=== PATIENT | male | born 1990 | race Caucasian/White ===

== ENCOUNTER 2019-12-10 12:40 | Emergency (ER) | payer OTHER ==
--- NOTE | 2019-12-10 12:51 | EDM.PDOC ---
ED HPI GENERAL MEDICAL PROBLEM - General Chief Complaint: Fever Stated Complaint: FEVER 100.1 NOT FEELING WELL Time Seen by Provider: 12/10/19 12:50 Source of Information: Reports: Patient History Limitations: Reports: No Limitations - History of Present Illness INITIAL COMMENTS - FREE TEXT/NARRATIVE: This 29 year old male is admitted to the ED with a chief complaint of fever, cough and SOB since yesterday. He states that he returned from [place], [place] about one to two weeks ago. He also complains of weakness of all his muscles with aching of all of his muscles. He complains of mild nausea and vomiting this morning. He denies any other symptoms at this time. - Related Data Allergies Allergy/AdvReac Type Severity Reaction Status Date / Time No Known Allergies Allergy Verified 12/10/19 12:54 Home Meds: Home Meds Azithromycin [Zithromax] 500 mg PO DAILY 7 Days #7 tab 12/10/19 [Rx] Benzonatate 200 mg PO BID PRN 5 Days #10 capsule 12/10/19 [Rx] ED ROS GENERAL - Review of Systems Review Of Systems: Comprehensive ROS is negative, except as noted in HPI. ED EXAM, GENERAL - Physical Exam Exam: See Below Exam Limited By: No Limitations General Appearance: Alert, WD/WN, No Apparent Distress Eye Exam: Bilateral Eye: EOMI, Normal Inspection, PERRL Ears: Normal External Exam, Normal Canal, Hearing Grossly Normal, Normal TMs Ear Exam: Bilateral Ear: Auricle Normal, Canal Normal, TM normal Nose: Normal Inspection, Normal Mucosa, No Blood Throat/Mouth: Normal Inspection, Normal Oropharynx Head: Atraumatic, Normocephalic Neck: Normal Inspection, Supple, Non-Tender, Full Range of Motion Respiratory/Chest: No Respiratory Distress, Lungs Clear, Normal Breath Sounds Cardiovascular: Normal Peripheral Pulses, Regular Rate, Rhythm, No Edema, No Murmur GI/Abdominal: Normal Bowel Sounds, Soft, Non-Tender, No Organomegaly, No Abnormal Bruit (Male) Exam: Deferred Rectal (Males) Exam: Black Stool Back Exam: Normal Inspection, Full Range of Motion Extremities: Normal Inspection, Normal Range of Motion, Normal Capillary Refill Neurological: Alert, Oriented (times 4), CN II-XII Intact, Normal Cognition, Normal Gait, Normal Reflexes, No Motor/Sensory Deficits Psychiatric: Normal Affect, Normal Mood Skin Exam: Warm, Dry, Intact, Normal Color, No Rash Lymphatic: No Adenopathy Course - Vital Signs Text/Narrative:: I reviewed all of the patients diagnostic test including his negative COVID. I told him that his WBC was 17,000 and I could not account for an infection but that I would cover him with Zithromax for the next 6 days. He agrees with the discharge plan. Last Recorded V/S: Last Vital Signs Temp 100.2 F 12/10/19 12:56 Pulse 109 H 12/10/19 12:56 Resp 17 12/10/19 12:56 BP 130/72 12/10/19 12:56 Pulse Ox 98 12/10/19 12:56 - Orders/Labs/Meds Labs: Laboratory Tests 12/10/19 12/10/19 Range/Units 13:14 14:41 WBC 17.10 H (4.0-11.0) K/uL RBC 5.56 (4.50-5.90) M/uL Hgb 15.2 (13.0-17.0) g/dL Hct 45.2 (38.0-50.0) % MCV 81.3 (80.0-98.0) fL MCH 27.3 (27.0-32.0) pg MCHC 33.6 (31.0-37.0) g/dL RDW Std Deviation 40.8 (28.0-62.0) fl RDW Coeff of Carly 14 (11.0-15.0) % Plt Count 199 (150-400) K/uL MPV 11.00 (7.40-12.00) fL Neut % (Auto) 75.2 (48.0-80.0) % Lymph % (Auto) 11.8 L (16.0-40.0) % [place] % (Auto) 11.7 (0.0-15.0) % Eos % (Auto) 1.1 (0.0-7.0) % Baso % (Auto) 0.2 (0.0-1.5) % Neut # (Auto) 12.9 H (1.4-5.7) K/uL Lymph # (Auto) 2.0 (0.6-2.4) K/uL [place] # (Auto) 2.0 H (0.0-0.8) K/uL Eos # (Auto) 0.2 (0.0-0.7) K/uL Baso # (Auto) 0.0 (0.0-0.1) K/uL Nucleated RBC % 0.0 /100WBC Nucleated RBCs # 0 K/uL SARS-CoV-2 RNA (RT-PCR) NEGATIVE (NEGATIVE) Meds: Medications Discontinued Medications Generic Name Dose Route Start Last Admin Trade Name Freq PRN Reason Stop Dose Admin Benzonatate 200 mg 12/10/19 13:02 12/10/19 14:20 Tessalon Perles PO 12/10/19 13:03 200 mg ONETIME ONE Administration Departure - Departure Time of Disposition: 14:59 Disposition: Home, Self-Care 01 Condition: Good Clinical Impression: Acute viral syndrome Leukocytosis Qualifiers: Leukocytosis type: unspecified Qualified Code(s): D72.829 - Elevated white blood cell count, unspecified - Discharge Information *PRESCRIPTION DRUG MONITORING PROGRAM REVIEWED*: Yes *COPY OF PRESCRIPTION DRUG MONITORING REPORT IN PATIENT DOROTEO: Yes Instructions: Viral Respiratory Infection, [id number]-Hj-[id number], Fever, Adult, Easy-to- Read Referrals: PCP,None [Primary Care Provider] - Forms: ED Department Discharge Additional Instructions: Take all medications as directed. Follow up with your PCP in the next two to four days. Drink plenty of clear liquids for the next 24-48 hours. Rest for the next 24 hours. Return to the ED if your condition gets worse or should you have any questions or concerns. The following information is given to patients seen in the emergency department who are being discharged to home. This information is to outline your options for follow-up care. We provide all patients seen in our emergency department with a follow-up referral. The need for follow-up, as well as the timing and circumstances, are variable depending upon the specifics of your emergency department visit. If you don't have a primary care physician on staff, we will provide you with a referral. We always advise you to contact your personal physician following an emergency department visit to inform them of the circumstance of the visit and for follow-up with them and/or the need for any referrals to a consulting specialist. The emergency department will also refer you to a specialist when appropriate. This referral assures that you have the opportunity for follow-up care with a specialist. All of these measure are taken in an effort to provide you with optimal care, which includes your follow-up. Under all circumstances we always encourage you to contact your private physician who remains a resource for coordinating your care. When calling for follow-up care, please make the office aware that this follow-up is from your recent emergency room visit. If for any reason you are refused follow-up, please contact the [facility] Emergency Department at and asked to speak to the emergency department charge nurse Sepsis Event Note - Focused Exam Vital Signs: Vital Signs Temp Pulse Resp BP Pulse Ox 12/10/19 12:56 100.2 F 109 H 17 130/72 98 Date Exam was Performed: 12/10/19 Time Exam was Performed: 14:57
[2019-12-10] MEDS ORDERED: Benzonatate 100 MG Cap PO ONE (13:02)
--- NOTE | 2019-12-10 13:52 | CR ---
Chest: 2 views of the chest were obtained. Comparison: No prior chest imaging is available. Heart size and mediastinum are normal. Small oblong nodular density is seen overlying the posterior left 6th rib within the upper chest. Uncertain if this represents a nodule within the lung parenchyma or represents a bone island. Lungs otherwise are clear. Bony structures are otherwise unremarkable. Impression: 1. Nodule as noted above. Given the patient's age this is most likely incidental. 2. Nothing acute is otherwise seen on 2 view chest x-ray. Diagnostic code #2 This report was dictated in MDT
== END 2019-12-10 15:17 | disposition home or self-care (01) ==
LOC: MW.ED 12:40
DX: B34.9 Viral infection, unspecified (principal); D72.829 Elevated white blood cell count, unspecified; Z20.828 Contact with and (suspected) exposure to other viral communicable diseases
CPT/HCPCS: 36415; 71046; 85025; 87635; 99283; A9270; 99282; U0002

== ENCOUNTER 2019-12-12 08:12 | Emergency (ER) | payer OTHER ==
--- NOTE | 2019-12-12 08:46 | EDM.PDOC ---
ED HPI GENERAL MEDICAL PROBLEM - General Chief Complaint: ENT Problem Stated Complaint: PT THINKS HE MAY HAVE STREP Time Seen by Provider: 12/12/19 08:41 Source of Information: Reports: Patient History Limitations: Reports: No Limitations - History of Present Illness INITIAL COMMENTS - FREE TEXT/NARRATIVE: Is a 29-year-old male who is here with worsening sore throat. Patient has noted white spots on the back of his tonsils. He was seen here 2 days ago at that time was tested for COVID which was negative and was started on azithromycin. Was also given some cough medicine. He denies any fever or chills. He denies any nausea vomiting diarrhea. He denies any trouble swallowing or breathing. Is taken nothing else for his current symptoms. He is here because he is worried they might have strep pharyngitis. Have informed them we do not need to test for it since he is already being covered with azithromycin. Duration: Day(s): (four) Location: Reports: Other (Throat.) Quality: Reports: Ache Improves with: Reports: None Worsens with: Reports: None throat Pain Score (Numeric/FACES): 8 - Related Data Allergies Allergy/AdvReac Type Severity Reaction Status Date / Time No Known Allergies Allergy Verified 12/12/19 08:20 Home Meds: Home Meds Azithromycin [Zithromax] 500 mg PO DAILY 12/12/19 [History] Benzonatate 200 mg PO BID PRN 12/12/19 [History] Lisdexamfetamine Dimesylate [Vyvanse] 20 mg PO DAILY 12/12/19 [History] predniSONE [Prednisone] 20 mg PO DAILY #5 tablet 12/12/19 [Rx] Past Medical History - Past Health History Medical/Surgical History: Denies Medical/Surgical History HEENT History: Reports: None Cardiovascular History: Reports: None Respiratory History: Reports: None Gastrointestinal History: Reports: None Genitourinary History: Reports: None Musculoskeletal History: Reports: None Neurological History: Reports: None Psychiatric History: Reports: None Endocrine/Metabolic History: Reports: None Hematologic History: Reports: None Immunologic History: Reports: None Oncologic (Cancer) History: Reports: None Dermatologic History: Reports: None - Infectious Disease History Infectious Disease History: Reports: None - Past Surgical History Head Surgeries/Procedures: Reports: None HEENT Surgical History: Reports: None Cardiovascular Surgical History: Reports: None Respiratory Surgical History: Reports: None GI Surgical History: Reports: None Male Surgical History: Reports: None Endocrine Surgical History: Reports: None Neurological Surgical History: Reports: None Musculoskeletal Surgical History: Reports: None Oncologic Surgical History: Reports: None Dermatological Surgical History: Reports: None Social & Family History - Family History Family Medical History: Noncontributory - Tobacco Use Smoking Status *Q: Current Every Day Smoker Years of Tobacco use: 5 Packs/Tins Daily: 1.5 - Caffeine Use Caffeine Use: Reports: None - Recreational Drug Use Recreational Drug Use: No ED ROS ENT - Review of Systems Review Of Systems: Comprehensive ROS is negative, except as noted in HPI. ED EXAM, ENT - Physical Exam Exam: See Below Exam Limited By: No Limitations General Appearance: Alert Mouth/Throat: Pharyngeal Erythema, Other (Enlarged tonsils bilaterally with exudates.) Neck: Normal Inspection. No: Lymphadenopathy (L), Lymphadenopathy (R) Respiratory/Chest: No Respiratory Distress Neurological: Alert, Oriented Psychiatric: Normal Affect Skin: Warm, Dry Lymphatic: No Adenopathy Course - Vital Signs Text/Narrative:: I am starting patient on prednisone. Advising him to use children's ibuprofen and his adult dose to coat his throat make him feel better. He may try salt water gargles. Last Recorded V/S: Last Vital Signs Temp 35.9 C L 12/12/19 08:21 Pulse 75 12/12/19 08:21 Resp 18 12/12/19 08:21 BP 120/81 12/12/19 08:21 Pulse Ox 96 12/12/19 08:21 Departure - Departure Time of Disposition: 08:52 Disposition: Home, Self-Care 01 Condition: Good Clinical Impression: Exudative pharyngitis - Discharge Information Instructions: Pharyngitis Referrals: PCP,None [Primary Care Provider] - Additional Instructions: The following information is given to patients seen in the emergency department who are being discharged to home. This information is to outline your options for follow-up care. We provide all patients seen in our emergency department with a follow-up referral. The need for follow-up, as well as the timing and circumstances, are variable depending upon the specifics of your emergency department visit. If you don't have a primary care physician on staff, we will provide you with a referral. We always advise you to contact your personal physician following an emergency department visit to inform them of the circumstance of the visit and for follow-up with them and/or the need for any referrals to a consulting specialist. The emergency department will also refer you to a specialist when appropriate. This referral assures that you have the opportunity for follow-up care with a specialist. All of these measure are taken in an effort to provide you with optimal care, which includes your follow-up. Under all circumstances we always encourage you to contact your private physician who remains a resource for coordinating your care. When calling for follow-up care, please make the office aware that this follow-up is from your recent emergency room visit. If for any reason you are refused follow-up, please contact the [facility] Emergency Department at and asked to speak to the emergency department charge nurse. Care Plan Goals: Liquid ibuprofen every 6 hours as needed. Salt water gargles. Mazzone as prescribed. Return to ER if worse. Follow-up with PCP if not improving. Sepsis Event Note - Evaluation Sepsis Screening Result: No Definite Risk - Focused Exam Vital Signs: Vital Signs Temp Pulse Resp BP Pulse Ox 12/12/19 08:21 35.9 C L 75 18 120/81 96 Date Exam was Performed: 12/12/19 Time Exam was Performed: 08:41
== END 2019-12-12 08:58 | disposition home or self-care (01) ==
LOC: MW.ED 08:12
DX: J02.9 Acute pharyngitis, unspecified (principal); F17.210 Nicotine dependence, cigarettes, uncomplicated
CPT/HCPCS: 99282

== ENCOUNTER 2021-02-25 17:39 | Emergency (ER) | payer OTHER ==
[2021-02-25 20:49] LABS: CORONAVIRUS COVID-19 NAA NEGATIVE (NEGATIVE); INFLUENZA A NAA NEGATIVE (NEGATIVE); INFLUENZA B NAA NEGATIVE (NEGATIVE)
--- NOTE | 2021-02-25 20:53 | EDM.PDOC ---
ED HPI GENERAL MEDICAL PROBLEM - General Chief Complaint: Respiratory Problem Stated Complaint: FEELING ILL Time Seen by Provider: 02/25/21 19:43 Source of Information: Reports: Patient History Limitations: Reports: No Limitations - History of Present Illness INITIAL COMMENTS - FREE TEXT/NARRATIVE: HISTORY AND PHYSICAL: History of present illness: Patient is a 30-year-old male who presents emergency room today with concern of cough x4 days. Patient states that yesterday he did have a fever and chills and states he has had some nausea and one episode of vomiting yesterday but states he has not had that today. Patient states he also had diarrhea a few episodes yesterday but not today. Patient states today he continues to have a "spasmatic cough "and states that at times he has coughed so hard this is what made him vomit yesterday. Patient states that he did have COVID-19 infection 9 months ago and states that he has not been vaccinated but states that when he had Covid he thought this felt different than how he feels today. Patient states he has not taken anything for his symptoms. Patient denies shortness of breath, chest pain. Denies headache, neck stiff n ess, change in vision, syncope, or near syncope. Denies abdominal pain, constipation, or dysuria. Has not noted any blood in urine or stool. Patient has been eating and drinking appropriately. Review of systems: As per history of present illness and below otherwise all systems reviewed and negative. Past medical history: As per history of present illness and as reviewed below otherwise noncont ributory. Surgical history: As per history of present illness and as reviewed below otherwise noncontributory. Social history: See social history for further information Family history: As per history of present illness and as reviewed below otherwise noncontributory. Physical exam: General: Patient is alert, oriented, and in no acute distress. Patient sitting comfortably on exam table. Vitals stable and reviewed by me. HEENT: Atraumatic, normocephalic, pupils equal and reactive bilaterally, negative for conjunctival pallor or scleral icterus, mucous membranes moist, TMs normal bilaterally, throat clear, neck supple, nontender, trachea midline. No drooling or trismus noted. No meningeal signs. No hot potato voice noted. Lungs: Clear to auscultation, breath sounds equal bilaterally, chest nontender. Spasmatic cough on exam. Otherwise, no wheezing or stridor. Patient is breathing comfortably. Heart: S1S2, regular rate and rhythm without overt murmur Abdomen: Soft, nondistended, nontender. Negative for masses or hepatosplenomegaly. Negative for costovertebral tenderness. Pelvis: Stable nontender. Genitourinary: Deferred. Rectal: Deferred. Skin: Intact, warm, dry. No lesions or rashes noted. Extremities: Atraumatic, negative for cords or calf pain. Neurovascular unremarkable. Neuro: Awake, alert, oriented. Cranial nerves II through XII unremarkable. Cerebellum unremarkable. Motor and sensory unremarkable throughout. Exam nonfocal. Notes: Patient is an otherwise healthy 30-year-old male who presents emergency room today with concern of cough/chest pain x4 days with at times coughing so hard has induced emesis. Upon arrival to the ED, patient is vitally stable and well- appearing on exam. Triage vitals does note that patient is tachycardic, however, this has resolved by my exam and approximately 95 bpm on my exam. Patient does have a spasmatic cough on exam that comes and goes, but otherwise is well-appearing on exam with no abdominal pain or tenderness. Will obtain cardiac evaluation and chest x-ray and reassess patient. Voices understanding and is agreeable to plan of care. Denies any further questions or concerns at this time. CBC shows mild decrease in neutrophil percent at 45 with 2% bands and elevation in lymphocyte percent 41%. Otherwise, mild derangements of CBC unremarkable. CMP shows a mild hyponatremia at 133. AST and ALT are elevated at 107 and 316 respectively. Alk phos is also elevated at 184. Total bili is within normal limits at 0.7. Troponin negative. Urinalysis shows 30 protein, small bilirubin with 0-2 red blood cells, 1-2 white blood cells. Acetaminophen level negative. Influenza and Covid negative. Pending Legionella and pertussis Chest x-ray shows no acute cardiopulmonary process. Upon reevaluation of patient, he has improvement of his cough with nebulized lidocaine today. Will treat patient with azithromycin for possible atypical pneumonia. Strict return precautions thoroughly discussed with patient. Discussed importance for follow-up with a primary care provider. Diagnostics: EKG, CBC, CMP, chest x-ray, Covid/influenza, trop, Legionella, Pertussis Therapeutics: Nebulized lidocaine Prescription: Robitussin Azithromycin Zofran Impression: Cough Plan: 1. Take medication as prescribed. You can also alternate ibuprofen and Tylenol as directed for pain and discomfort. Caution when taking additional cough syrups or brty-ryy-yaduwoq cold medications as these commonly contain acetaminophen (Tylenol). 2. Follow-up with a primary care provider as discussed. Return to the ED as needed and as discussed. Definitive disposition and diagnosis as appropriate pending reevaluation and review of above. Upper Chest Pain Score (Numeric/FACES): 3 - Related Data Allergies Allergy/AdvReac Type Severity Reaction Status Date / Time No Known Allergies Allergy Verified 12/12/19 08:20 Home Meds: Home Meds . [No Known Home Meds] 02/25/21 [History] Past Medical History - Past Health History Medical/Surgical History: Denies Medical/Surgical History HEENT History: Reports: None Cardiovascular History: Reports: None Respiratory History: Reports: None Gastrointestinal History: Reports: None Genitourinary History: Reports: None Musculoskeletal History: Reports: None Neurological History: Reports: None Psychiatric History: Reports: None Endocrine/Metabolic History: Reports: None Hematologic History: Reports: None Immunologic History: Reports: None Oncologic (Cancer) History: Reports: None Dermatologic History: Reports: None - Infectious Disease History Infectious Disease History: Reports: None - Past Surgical History Head Surgeries/Procedures: Reports: None HEENT Surgical History: Reports: None Cardiovascular Surgical History: Reports: None Respiratory Surgical History: Reports: None GI Surgical History: Reports: None Male Surgical History: Reports: None Endocrine Surgical History: Reports: None Neurological Surgical History: Reports: None Musculoskeletal Surgical History: Reports: None Oncologic Surgical History: Reports: None Dermatological Surgical History: Reports: None Social & Family History - Family History Family Medical History: No Pertinent Family History - Caffeine Use Caffeine Use: Reports: None - Recreational Drug Use Recreational Drug Use: No ED ROS GENERAL - Review of Systems Review Of Systems: Comprehensive ROS is negative, except as noted in HPI. ED EXAM, GENERAL - Physical Exam Exam: See Below (see dictation) Course - Vital Signs Last Recorded V/S: Last Vital Signs Temp 98.6 F 02/25/21 19:39 Pulse 89 02/25/21 21:51 Resp 18 02/25/21 21:51 BP 121/76 02/25/21 21:51 Pulse Ox 99 08/02/21 21:51 - Orders/Labs/Meds Orders: Active Orders 24 hr Category Date Time Status Cardiac Monitoring [RC] . DIRECTED Care 02/25/21 20:03 Active EKG Documentation Completion [RC] STAT Care 02/25/21 20:04 Active B PERTUSSIS IGG/M/A AB [REF] Stat Lab 02/25/21 20:20 Received BORD PERTUSS NUCLEIC ACID AMP [MREF] Stat Lab 02/25/21 20:05 Received LEGIONELLA ANTIGEN [MREF] Stat Lab 02/25/21 21:45 Received Labs: Laboratory Tests 02/25/21 02/25/21 02/25/21 Range/Units 20:00 20:20 20:20 WBC 9.20 (4.0-11.0) K/uL RBC 5.79 (4.50-5.90) M/uL Hgb 16.1 (13.0-17.0) g/dL Hct 45.6 (38.0-50.0) % MCV 78.8 L (80.0-98.0) fL MCH 27.8 (27.0-32.0) pg MCHC 35.3 (31.0-37.0) g/dL RDW Std Deviation 37.8 (28.0-62.0) fl RDW Coeff of Carly 13 (11.0-15.0) % Plt Count 201 (150-400) K/uL MPV 10.40 (7.40-12.00) fL Add Manual Diff YES Neutrophils % (Manual) 45 L (48.0-80.0) % Band Neutrophils % 2 % Lymphocytes % (Manual) 41 H (16.0-40.0) % Monocytes % (Manual) 9 (0.0-15.0) % Eosinophils % (Manual) 3 (0.0-7.0) % Nucleated RBC % 0.0 /100WBC Absolute Seg Neuts 4.1 (1.4-5.7) Band Neutrophils # 0.2 Lymphocytes # (Manual) 3.8 H (0.6-2.4) Monocytes # (Manual) 0.8 (0.0-0.8) Eosinophils # (Manual) 0.3 (0.0-0.7) Nucleated RBCs # 0 K/uL Sodium 133 L (136-148) mmol/L Potassium 3.9 (3.5-5.1) mmol/L Chloride 101 (98-107) mmol/L Carbon Dioxide 22.3 (21.0-32.0) mmol/L BUN 14 (7.0-18.0) mg/dL Creatinine 1.0 (0.8-1.3) mg/dL Est Cr Clr Drug Dosing 118.56 mL/min Estimated GFR (MDRD) > 60.0 ml/min Glucose 106 (74-106) mg/dL Calcium 8.5 (8.5-10.1) mg/dL Total Bilirubin 0.7 (0.2-1.0) mg/dL AST 107 H (15-37) IU/L ALT 316 H (14-63) IU/L Alkaline Phosphatase 184 H (46-116) U/L Troponin I < 0.050 (0.000-0.056) ng/mL Total Protein 8.0 (6.4-8.2) g/dL Albumin 3.8 (3.4-5.0) g/dL Globulin 4.2 H (2.6-4.0) g/dL Albumin/Globulin Ratio 0.9 (0.9-1.6) Urine Color Urine Appearance Urine pH (5.0-8.0) Ur Specific Minier (1.001-1.035) Urine Protein (NEGATIVE) mg/dL Urine Glucose (UA) (NEGATIVE) mg/dL Urine Ketones (NEGATIVE) mg/dL Urine Occult Blood (NEGATIVE) Urine Nitrite (NEGATIVE) Urine Bilirubin (NEGATIVE) Urine Ictotest Urine Urobilinogen (<2.0) EU/dL Ur Leukocyte Esterase (NEGATIVE) Urine RBC (0-2/HPF) Urine WBC (0-5/HPF) Ur Epithelial Cells (NONE-FEW) Urine Bacteria (NEGATIVE) Urine Mucus (NONE-MOD) Acetaminophen ug/mL Influenza Type A RNA NEGATIVE (NEGATIVE) Influenza Type B RNA NEGATIVE (NEGATIVE) SARS-CoV-2 RNA ([place]) NEGATIVE (NEGATIVE) 02/25/21 02/25/21 Range/Units 20:20 21:45 WBC (4.0-11.0) K/uL RBC (4.50-5.90) M/uL Hgb (13.0-17.0) g/dL Hct (38.0-50.0) % MCV (80.0-98.0) fL MCH (27.0-32.0) pg MCHC (31.0-37.0) g/dL RDW Std Deviation (28.0-62.0) fl RDW Coeff of Carly (11.0-15.0) % Plt Count (150-400) K/uL MPV (7.40-12.00) fL Add Manual Diff Neutrophils % (Manual) (48.0-80.0) % Band Neutrophils % % Lymphocytes % (Manual) (16.0-40.0) % Monocytes % (Manual) (0.0-15.0) % Eosinophils % (Manual) (0.0-7.0) % Nucleated RBC % /100WBC Absolute Seg Neuts (1.4-5.7) Band Neutrophils # Lymphocytes # (Manual) (0.6-2.4) Monocytes # (Manual) (0.0-0.8) Eosinophils # (Manual) (0.0-0.7) Nucleated RBCs # K/uL Sodium (136-148) mmol/L Potassium (3.5-5.1) mmol/L Chloride (98-107) mmol/L Carbon Dioxide (21.0-32.0) mmol/L BUN (7.0-18.0) mg/dL Creatinine (0.8-1.3) mg/dL Est Cr Clr Drug Dosing mL/min Estimated GFR (MDRD) ml/min Glucose (74-106) mg/dL Calcium (8.5-10.1) mg/dL Total Bilirubin (0.2-1.0) mg/dL AST (15-37) IU/L ALT (14-63) IU/L Alkaline Phosphatase (46-116) U/L Troponin I (0.000-0.056) ng/mL Total Protein (6.4-8.2) g/dL Albumin (3.4-5.0) g/dL Globulin (2.6-4.0) g/dL Albumin/Globulin Ratio (0.9-1.6) Urine Color YELLOW Urine Appearance CLEAR Urine pH 5.5 (5.0-8.0) Ur Specific Minier >= 1.030 (1.001-1.035) Urine Protein 30 H (NEGATIVE) mg/dL Urine Glucose (UA) NEGATIVE (NEGATIVE) mg/dL Urine Ketones NEGATIVE (NEGATIVE) mg/dL Urine Occult Blood NEGATIVE (NEGATIVE) Urine Nitrite NEGATIVE (NEGATIVE) Urine Bilirubin SMALL H (NEGATIVE) Urine Ictotest NEGATIVE Urine Urobilinogen 1.0 (<2.0) EU/dL Ur Leukocyte Esterase NEGATIVE (NEGATIVE) Urine RBC 0-2 (0-2/HPF) Urine WBC 1-2 (0-5/HPF) Ur Epithelial Cells FEW (NONE-FEW) Urine Bacteria FEW (NEGATIVE) Urine Mucus MODERATE (NONE-MOD) Acetaminophen <2.0 ug/mL Influenza Type A RNA (NEGATIVE) Influenza Type B RNA (NEGATIVE) SARS-CoV-2 RNA ([place]) (NEGATIVE) Meds: Medications Discontinued Medications Generic Name Dose Route Start Last Admin Trade Name Freq PRN Reason Stop Dose Admin Lidocaine HCl 5 ml 02/25/21 21:41 02/25/21 21:50 Lidocaine 1% 5 Ml Sdv INJECT 02/25/21 21:42 5 ml ONETIME ONE Administration Departure - Departure Time of Disposition: 21:59 Disposition: Home, Self-Care 01 Clinical Impression: Cough - Discharge Information Instructions: Cough, Adult Referrals: PCP,None [Primary Care Provider] - Forms: ED Department Discharge Additional Instructions: The following information is given to patients seen in the emergency department who are being discharged to home. This information is to outline your options for follow-up care. We provide all patients seen in our emergency department with a follow-up referral. The need for follow-up, as well as the timing and circumstances, are variable depending upon the specifics of your emergency department visit. If you don't have a primary care physician on staff, we will provide you with a referral. We always advise you to contact your personal physician following an emergency department visit to inform them of the circumstance of the visit and for follow-up with them and/or the need for any referrals to a consulting specialist. The emergency department will also refer you to a specialist when appropriate. This referral assures that you have the opportunity for follow-up care with a specialist. All of these measure are taken in an effort to provide you with optimal care, which includes your follow-up. Under all circumstances we always encourage you to contact your private physic nandini who remains a resource for coordinating your care. When calling for follow- up care, please make the office aware that this follow-up is from your recent emergency room visit. If for any reason you are refused follow-up, please contact the [facility] Emergency Department at and asked to speak to the emergency department charge nurse. [facility] [address] [place] [address] [facility] [address] [place] [id number] 1. Take medication as prescribed. You can also alternate ibuprofen and Tylenol as directed for pain and discomfort. Caution when taking additional cough syrups or uwkq-fom-tvxpyjf cold medications as these commonly contain acetaminophen (Tylenol). 2. Follow-up with a primary care provider as discussed. Return to the ED as needed and as discussed. Sepsis Event Note (ED) - Evaluation Sepsis Screening Result: No Definite Risk - Focused Exam Vital Signs: Vital Signs Temp Pulse Resp BP Pulse Ox 02/25/21 21:51 89 18 121/76 99 02/25/21 19:39 98.6 F 106 H 14 96 - My Orders Last 24 Hours: My Active Orders 02/25/21 20:03 Cardiac Monitoring [RC] . DIRECTED 02/25/21 20:04 EKG Documentation Completion [RC] STAT 02/25/21 20:05 BORD PERTUSS NUCLEIC ACID AMP [MREF] Stat 02/25/21 20:20 B PERTUSSIS IGG/M/A AB [REF] Stat 02/25/21 21:45 LEGIONELLA ANTIGEN [MREF] Stat - Assessment/Plan Last 24 Hours: My Active Orders 02/25/21 20:03 Cardiac Monitoring [RC] . DIRECTED 02/25/21 20:04 EKG Documentation Completion [RC] STAT 02/25/21 20:05 BORD PERTUSS NUCLEIC ACID AMP [MREF] Stat 02/25/21 20:20 B PERTUSSIS IGG/M/A AB [REF] Stat 02/25/21 21:45 LEGIONELLA ANTIGEN [MREF] Stat
[2021-02-25 21:03] LABS: BLOOD UREA NITROGEN,BUN 14 mg/dL (7.0-18.0); CARBON DIOXIDE,CO2 22.3 mmol/L (21.0-32.0); CHLORIDE,CL 101 mmol/L (98-107); GLUCOSE RANDOM 106 mg/dL (74-106); POTASSIUM,K 3.9 mmol/L (3.5-5.1); SODIUM,NA 133 mmol/L (136-148)
--- NOTE | 2021-02-25 22:44 | CR ---
INDICATION: cough and fever CHEST, PA AND LATERAL Upright PA and lateral radiographs of the chest were performed. Comparison: 12/10/2019. The lungs appear clear and there are no pleural effusions. Heart size and pulmonary vasculature appear normal. Visualized bones show no significant findings. IMPRESSION: No acute intrathoracic abnormality identified. TEDDY GUEVARA MD [employer] [employer] Dictated by: Kraig Guevara MD @ 02/25/2021 22:43:29 (Electronically Signed)
== END 2021-02-25 22:25 | disposition home or self-care (01) ==
LOC: MW.ED 17:39
DX: R05 Cough (principal); Z20.822 Contact with and (suspected) exposure to COVID-19
CPT/HCPCS: 0240U; 36415; 71046; 80053; 80143; 81001; 84484; 85025; 86615; 87899; 93005; 99284

== ENCOUNTER 2022-10-05 10:42 | Emergency (ER) | payer SELFPAY ==
[2022-10-05] MEDS ORDERED: Azithromycin 250 MG Tab PO ONE (11:01)
[2022-10-05] MEDS ORDERED: Ibuprofen 600 MG Tab PO ONE (11:01)
== END 2022-10-05 11:10 | disposition home or self-care (01) ==
LOC: MW.ED 10:42
DX: J32.9 Chronic sinusitis, unspecified (principal)
CPT/HCPCS: 99283; A9270

== ENCOUNTER 2023-11-08 06:56 | Emergency (ER) | payer BC, OTHER ==
[2023-11-08] MEDS: Cefdinir 300 MG Cap PO ONE (07:43)
[2023-11-08] MEDS: Ketorolac 30 MG/ML SDV IM ONE (07:44)
[2023-11-08] MEDS: traMADol 50 MG Tab PO ONE (07:44)
== END 2023-11-08 08:01 | disposition home or self-care (01) ==
LOC: MW.ED 06:56
DX: J02.0 Streptococcal pharyngitis (principal); Z75.8 Other problems related to medical facilities and other health care
CPT/HCPCS: 96372; 99283; A9270; J1885

== ENCOUNTER 2023-11-21 16:41 | Emergency (ER) | payer BC ==
[2023-11-21] MEDS: Dexamethasone 10 MG/ML SDV IM ONE (17:37)
[2023-11-21] MEDS: Lidocaine 2% Viscous Solution 15 ML UD PO ONE (17:38)
[2023-11-21] MEDS: Ketorolac 30 MG/ML SDV IM ONE (17:38)
== END 2023-11-21 18:25 | disposition home or self-care (01) ==
LOC: MW.ED 16:41
DX: J02.0 Streptococcal pharyngitis (principal); Z75.8 Other problems related to medical facilities and other health care
CPT/HCPCS: 36415; 86308; 87651; 96372; 99283; A9270; J1100; J1885